=== PATIENT | male | born 1980 | race Caucasian/White ===

== ENCOUNTER 2025-01-24 22:08 | Emergency (ER) | payer MEDICAID ==
[~2025-01-24] VITALS: Ht 177.8 cm; Wt 99.8 kg
[2025-01-24] MEDS ORDERED: LISI1TAB29 PO (22:23)
[2025-01-24] MEDS ORDERED: METO25TA6 PO (22:23)
[2025-01-24 22:45] LABS: BASOPHILS # (AUTO) 0.1 K/UL (0.0-0.2); BASOPHILS % (AUTO) 0.7 % (0.0-2.0); EOSINOPHILS # (AUTO) 0.1 K/uL (0.0-0.7); EOSINOPHILS % (AUTO) 0.7 % (0.0-7.0); HEMATOCRIT 44.1 % (36.7-47.1); HEMOGLOBIN 15.1 g/dL (12.5-16.3); LYMPHOCYTES # (AUTO) 2.1 K/uL (0.8-4.8); LYMPHOCYTES % (AUTO) 26.3 % (20.5-51.5); MEAN CORPUSCULAR HEMOGLOBIN 27.7 uug (23.8-33.4); MEAN CORPUSCULAR HGB CONC 34 g/dL (32.5-36.3); MEAN CORPUSCULAR VOLUME 80.7 fL (73.0-96.2); MONOCYTES # (AUTO) 0.5 K/uL (0.1-1.30); MONOCYTES % (AUTO) 5.8 % (0.0-11.0); NEUTROPHILS # (AUTO) 5.3 K/uL (1.8-8.9); NEUTROPHILS % (AUTO) 66.5 % (38.5-71.5); PLATELET COUNT (AUTO) 342 K/uL (152-348); RED BLOOD CELL COUNT(AUTO) 5.46 MIL/uL (4.06-5.63); RED CELL DISTRIBUTION WIDTH 13.4 % (12.1-16.2)
[2025-01-24 22:46] LABS: DIFFERENTIAL COMMENT 1
[2025-01-24 22:57] LABS: ETHANOL < 3 MG/DL (0-10)
[2025-01-24] MEDS ORDERED: ASPIRIN 325 MG TABLET ONE (23:01)
[2025-01-24] MEDS ORDERED: METOPROLOL TARTRATE 5 MG/5 ML VIAL IVP ONE (23:01)
[2025-01-24 23:07] LABS: ALBUMIN 4.2 g/dL (3.4-5.0); BILIRUBIN,TOTAL 0.5 mg/dL (0.2-1.0); CALCIUM 9.4 mg/dL (8.5-10.1); CREATININE 0.9 mg/dL (0.6-1.3); TOTAL PROTEIN, SERUM 8.2 g/dL (6.4-8.2)
[2025-01-24] MEDS: ASPIRIN 325 MG TABLET PO ONE (23:10)
[2025-01-24 23:12] LABS: POTASSIUM 2.7 mmol/L (3.5-5.1)
[2025-01-25] MEDS: METOPROLOL TARTRATE 5 MG/5 ML VIAL IVP ONE (00:03)
[2025-01-25] MEDS ORDERED: POTASSIUM CHLORIDE 100 ML ONE (01:59)
[2025-01-25] MEDS ORDERED: POTASSIUM CHLORIDE 20 MEQ TAB.PRT.SR ONE (01:59)
[2025-01-25] MEDS: POTASSIUM CHLORIDE 20 MEQ TAB.PRT.SR PO ONE (02:19)
[2025-01-25] MEDS: POTASSIUM CHLORIDE 50 ML IV SCH (03:30)
[2025-01-25 04:30] VITALS: BP 128/78; O2SAT 99
[2025-01-25 06:18] LABS: *BILIRUBIN,URIN NEGATIVE (NEGATIVE); *CLARITY,URINE CLEAR (CLEAR); *COLOR,URINE YELLOW (YELLOW); *KETONES,URINE TRACE (NEGATIVE); *PROTEIN,URINE NEGATIVE (NEGATIVE); *UROBILINOGEN,URINE 0.2 E.U./dl (NORMAL); LEUKOCYTE ESTERASE ,URINE NEGATIVE (NEGATIVE); NITRITE, URINE NEGATIVE (NEGATIVE); PH,URINE 5.5 (5.0-8.0); UGLUCOSE NEGATIVE (NEGATIVE)
[2025-01-25 06:24] LABS: *BLOOD, URINE TRACE (NEGATIVE)
[2025-01-25 06:25] LABS: BACTERIA,URINE FEW /HPF (NONE SEEN); URINE AMORPHOUS URATE FEW /HPF; WBC,URINE 0-3 /HPF (0-3)
== END 2025-01-25 04:30 | disposition home or self-care (01) ==
LOC: ER 22:08
DX: R07.89 Other chest pain (principal); R42 Dizziness and giddiness; I10 Essential (primary) hypertension; Z79.899 Other long term (current) drug therapy
CPT/HCPCS: 80053; 81001; 83880; 85025; 84484 ×2; 36415 ×2; 71045; 93005; 99285; 80320; 83735; 85379; 96365; J3480; A4606; A4663; G0480; J3490